=== PATIENT | female | born 2000 | race Hispanic/Latino ===

== ENCOUNTER 2023-11-28 11:16 | Emergency (ER) | payer SELFPAY ==
--- NOTE | ~2023-11-28 | XR_ITS ---
EXAMINATION: XR chest 1V portable DATE: 11/28/2023 11:54 INDICATION: Left-sided chest pain with painful respirations TECHNIQUE: frontal view of the chest was obtained. COMPARISON: None FINDINGS: The lungs are clear with no focal airspace opacities, pulmonary edema, pleural effusion or pneumothor ax. The cardiomediastinal silhouette is normal. 20 degrees lower thoracic dextroscoliosis. IMPRESSION: 1. No acute cardiopulmonary disease. Reviewed, dictated and finalized at location A.
[2023-11-28 11:13] VITALS: BP 115/80; PULSE 79; RESP 20; TEMP 36.9; O2SAT 100
[2023-11-28 11:26] VITALS: O2SAT 100
--- NOTE | 2023-11-28 11:30 | ECG_ITS ---
Test Date: 2023-11-28 11:35:36 Measurements Intervals [place] Rate: 64 P: 61 TX: 152 QRS: 72 QRSD: 89 T: 50 QT: 375 QTc: 388 Interpretive Statements SINUS RHYTHM WITH SINUS ARRHYTHMIA POSSIBLE RIGHT VENTRICULAR CONDUCTION DELAY [RSR (QR) IN V1/V2] No previous ECG available for comparison Electronically Signed On 11-28-2023 16:18:29 CDT by Solitario Bella M.D.
--- NOTE | 2023-11-28 11:44 | ED.CHESTPAIN ---
HPI - Chest Pain General Chief Complaint: Chest Pain Stated Complaint: CP History of Present Illness HPI narrative: 23-year-old female presents to the emergency department for evaluation for left-sided chest pain. 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 Patient reports worsening pain with deep inspiration and describes the pain as sharp. Patient's friend is acting as ecology professor. Patient and friend declined to use the [employer] system. Related Data Allergies Allergy/AdvReac Type Severity Reaction Status Date / Time No Known Allergies Allergy Verified 11/28/23 11:29 Review of Systems Review of Systems: All systems reviewed & are unremarkable except as noted in HPI and below Exam Narrative: APPEARANCE: Uncomfortable pain HEAD: normocephalic, atraumatic. EYES: PERRLA/EOMI, conjunctivae clear. NOSE: Normal no drainage EARS:TMS clear with good light reflex. THROAT: Pharynx clear, no exudate. NECK: Supple. No adenopathy, no masses. RESPIRATORY: Airway patent, respirations nonlabored. Clear to auscultation bilaterally, no rales, rhonchi, wheezing. CARDIOVASCULAR: Regular rate and rhythm without murmurs rubs or gallops. ABDOMINAL: Soft, nontender, nondistended, normal bowel sounds MUSCULOSKELETAL: Left-sided chest wall tenderness to palpation NEURO: Alert. Cranial nerves II through XII intact. Grossly intact SKIN: Warm, dry. Normal Color Course Course Emergency Course: Patient felt improved with treatment. Patient was discharged to home with suspected pleurisy. Vital Signs Vital signs: Vital Signs Temperature 98.4 F 11/28/23 11:13 Pulse Rate 79 11/28/23 11:13 Respiratory Rate 20 11/28/23 11:13 Blood Pressure 115/80 11/28/23 11:13 Pulse Oximetry 100 11/28/23 11:13 Oxygen Delivery Room Air 11/28/23 11:13 Temperature 98.4 F 11/28/23 11:13 Pulse Rate 64 11/28/23 15:52 Respiratory Rate 14 11/28/23 15:52 Blood Pressure 100/60 11/28/23 15:52 Pulse Oximetry 100 11/28/23 15:52 Oxygen Delivery Room Air 11/28/23 11:26 MDM - Chest Pain MDM Narrative Medical decision making narrative: 23-year-old female presented emergency department for evaluation of left-sided chest pain. On re-evaluation patient states she does feel improved. Patient is afebrile with no leukocytosis and a stable hemoglobin. Patient had negative serial troponins. Patient's D-dimer was negative. Patient reports she did feel improved with the Toradol. Chest x-ray shows no acute cardiopulmonary abnormality. Suspect pleurisy. Low concern for ACS. Patient family updated the results of the workup. Differential Diagnosis Differential diagnosis: Likely fracture of rib, pneumothorax, unstable angina pectoris, atypical chest pain, costochondritis, chest pain and biliary colic Lab Data Attestation: I reviewed the patient's lab results. 11/28/23 11:41 11/28/23 11:42 Labs: Lab Results 11/28/23 11/28/23 11/28/23 Range/Units 11:41 11:42 11:42 WBC 9.8 (4.5-10.0) K/mm3 RBC 4.55 (4.2-5.4) M/mm3 Hgb 13.2 (12.0-15.0) g/dL Hct 38.9 (37.0-47.0) % MCV 85.5 (80-100) fl MCH 29.0 (26-34) pg MCHC 33.9 (32-36) g/dl RDW 12.7 (11.5-14.5) % Plt Count 373 (150-375) k/mm3 MPV 9.8 (7.4-10.4) fl Immature Gran % (Auto) 0.3 (0-0.5) % Neut % (Auto) 67.9 (45.5-73.1) % Lymph % (Auto) 23.0 (18.3-44.2) % [place] % (Auto) 6.9 (2.6-8.5) % Eos % (Auto) 1.7 (0-4.4) % Baso % (Auto) 0.2 (0.2-1.2) % Lymph # (Auto) 2.25 (0.9-3.2) K/mm3 [place] # (Auto) 0.7 H (0.1-0.6) K/mm3 Eos # (Auto) 0.2 (0-0.3) K/mm3 Baso # (Auto) 0.0 (0.0-0.1) K/mm3 Abs Immat Gran (auto) 0.03 (0.00-0.031) K/mm3 Absolute Neuts (auto) 6.6 (1.3-6.7) K/mm3 Absolute Nucleated RBC 0.000 (0.0-0.012) K/mm3 Nucleated R
[2023-11-28 11:47] LABS: Basophils Percent Auto 0.2 % (0.2-1.2); Eosinophils Absolute Auto 0.2 K/mm3 (0-0.3); Eosinophils Percent Auto 1.7 % (0-4.4); Hematocrit 38.9 % (37.0-47.0); Hemoglobin 13.2 g/dL (12.0-15.0); Immature Granulocyte Absolute 0.03 K/mm3 (0.00-0.031); Immature Granulocyte Percent A 0.3 % (0-0.5); Lymphocytes Absolute Auto 2.25 K/mm3 (0.9-3.2); Mean Corpuscular HGB Conc 33.9 g/dl (32-36); Mean Corpuscular Volume 85.5 fl (80-100); Mean Platelet Volume 9.8 fl (7.4-10.4); Monocytes Absolute Auto 0.7 K/mm3 (0.1-0.6); Monocytes Percent Auto 6.9 % (2.6-8.5); Neutrophils Absolute Auto 6.6 K/mm3 (1.3-6.7); Neutrophils Percent Auto 67.9 % (45.5-73.1); Platelet Count Result 373 k/mm3 (150-375); Red Blood Count 4.55 M/mm3 (4.2-5.4); Red Cell Distribution Width 12.7 % (11.5-14.5); White Blood Count 9.8 K/mm3 (4.5-10.0)
[2023-11-28 11:58] LABS: Alanine Aminotransferase 16 U/L (6-35); Albumin Level 4.4 g/dL (3.5-5.1); Alkaline Phosphatase 50 U/L (38-126); Anion Gap 9 mmol/L (4-12); Aspartate Amino Transferase 24 U/L (14-36); Bilirubin,Total 0.4 mg/dL (0.2-1.3); Blood Urea Nitrogen 20 mg/dL (7-17); Calcium 9.6 mg/dL (8.4-10.2); Carbon Dioxide 21 mmol/L (22-30); Chloride 112 mmol/L (98-107); Estimated CRCL calculation 159 ml/min; Estimated Glomerular Filt Rate > 60; Glucose 98 mg/dL (65-110); Lipase 93 U/L (23-300); Potassium 3.5 mmol/L (3.4-5.0); Sodium 142 mmol/L (137-145)
[2023-11-28 12:03] LABS: Prothrombin Time 13.3 Seconds (11.1-14.7)
[2023-11-28 12:04] LABS: Partial Thromboplastin Time 24.3 Seconds (22.3-36.8)
[2023-11-28 12:09] LABS: Troponin I < 0.012 ng/mL (0.000-0.034)
[2023-11-28 12:13] LABS: D Dimer 0.31 ug/mL (<0.48)
[2023-11-28 12:24] VITALS: BP 110/73; PULSE 72; RESP 13; O2SAT 96
[2023-11-28] MEDS: KETOROLAC 15 MG/ML VIAL (*BKC) IV PUSH (13:07)
[2023-11-28 14:05] VITALS: BP 110/70; PULSE 72; RESP 13; O2SAT 100
[2023-11-28 15:03] VITALS: BP 108/80; PULSE 69; RESP 16; O2SAT 100
[2023-11-28 15:21] LABS: Troponin I < 0.012 ng/mL (0.000-0.034)
[2023-11-28 15:52] VITALS: BP 100/60; PULSE 64; RESP 14; O2SAT 100
== END 2023-11-28 15:53 | disposition home or self-care (01) ==
PROVIDERS: Emergency Provider Emergency Medicine
DX: R07.89 Other chest pain (principal); R09.1 Pleurisy; R94.31 Abnormal electrocardiogram [ECG] [EKG]
CPT/HCPCS: 36415; 71045; 80053; 81025; 83690; 84484; 85025; 85380; 85610; 85730; 93005; 96374; 99284; J1885